=== PATIENT | female | born 1960 | race Caucasian/White ===

== ENCOUNTER 2018-06-19 11:29 | Inpatient (IN) | payer OTHER ==
[2018-06-19 11:36] VITALS: BMI 23.3
[2018-06-19] MEDS ORDERED: ACETAMINOPHEN 500 MG TABLET (FP) PO ONE (12:26)
--- NOTE | 2018-06-19 12:27 | PDOC ---
History of Present Illness - General Chief Complaint: Palpitations Stated Complaint: PALPITATIONS Time Seen by Provider: 06/19/18 11:53 History Source: Patient Exam Limitations: No Limitations - History of Present Illness Initial Comments: 06/19/18 12:39 57-year-old female presents to ED with intermittent palpitations, dizziness and chest tightness for the past week. Patient states was at work sitting when she felt dizzy and next thing she know she woke up on the floor with bystanders and coworkers surrounding her. Patient states EMS was activated but refused medical treatment after being evaluated by EMS. Patient denies nausea, vomiting, abdominal pain, back pain, or difficulty breathing. Patient states no chest pain presently but continues with intermittent palpitations and dizziness. Patient was sent by Dr. Zhong office for admission cardiac workup and cardiology consult. Patient with history of diabetes, dyslipidemia and hypertension. Presenting Symptoms: Dizziness, Syncope Timing/Duration: reports: intermittent Severity/Quality: reports: mild, tightness Location: reports: substernal Chest Pain Radiation: reports: no radiation Activities at Onset: reports: none Prior Chest Pain/Cardiac Workup: reports: No prior chest pain Nitro Today/Relief: Yes: no nitro taken today Aspirin Received prior to arrival (Core Measure): Yes: no aspirin today Associated Symptoms: Yes: Chest Pain/pressure, Dizziness, Syncope Past History - Travel Traveled outside of the country in the last 30 days: No - Past Medical History Allergies/Adverse Reactions: Allergies Allergy/AdvReac Type Severity Reaction Status Date / Time No Known Allergies Allergy Verified 06/19/18 11:56 COPD: No DVT: No Dementia: No Diabetes: Yes Hypercholesterolemia: Yes - Immunization History Immunization Up to Date: Yes - Suicide/Smoking/Psychosocial Hx Smoking History: Never smoked Have you smoked in the past 12 months: No Information on smoking cessation initiated: No Hx Alcohol Use: No Drug/Substance Use Hx: No Substance Use Type: None Patient Lives Alone: No Review of Systems - Review of Systems Able to Perform ROS?: No Constitutional: No: Symptoms Reported HEENTM: No: Symptoms Reported Respiratory: No: Symptoms reported Cardiac (ROS): Yes: Chest Pain, Lightheadedness, Syncope ABD/GI: No: Symptoms Reported : No: Symptoms Reported Musculoskeletal: No: Symptoms Reported Integumentary: No: Symptoms Reported Neurological: Yes: Dizziness Psychiatric: Yes: Anxiety Endocrine: No: Symptoms Reported Hematologic/Lymphatic: No: Symptoms Reported *Physical Exam - Vital Signs Last Vital Signs Temp Pulse Resp BP Pulse Ox 98.9 F 79 18 143/69 97 06/19/18 11:32 06/19/18 11:32 06/19/18 11:32 06/19/18 11:32 06/19/18 11:32 - Physical Exam General Appearance: Yes: Nourished, Appropriately Dressed. No: Apparent Distress HEENT: positive: EOMI, ANURADHA. negative: Pale Conjunctivae Neck: positive: Supple Respiratory/Chest: positive: Lungs Clear, Normal Breath Sounds. negative: Respiratory Distress, Accessory Muscle Use Cardiovascular: positive: Regular Rhythm, Regular Rate. negative: Murmur Gastrointestinal/Abdominal: positive: Soft. negative: Tenderness Extremity: positive: Normal Capillary Refill. negative: Pedal Edema Integumentary: positive: Normal Color, Warm, Moist Neurologic: positive: Motor Strength 5/5 (ambulatory) Heart Score/ECG Review - ECG Intrepretation Rhythm: Regular Rhythm (rate 73. Sinus rhythm with PAC. Right bundle-branch block. No ST elevation/depression) ED Treatment Course - LABORATORY CBC & Chemistry Diagram: 06/19/18 12:20 06/19/18 12:20 - RADIOLOGY Radiology Studies Ordered: Category Date Time Status HEAD CT WITHOUT CONTRAST [CT] Stat CT Scan 06/19/18 12:08 Ordered CHEST X-RAY PORTABLE* [RAD] Stat Radiology 06/19/18 11:54 Ordered CAROTID COLOR FLOW DOPP US [US] Stat Ultrasound 06/19/18 12:07 Ordered Medical Decision Making - Medical Decision Making 06/19/18 13:00 Patient sent here from Dr. vance's office for admission secondary to dizziness , syncope intermittent palpitations for the past week. Patient currently complaining of intermittent palpitations with mild dizziness without visual changes, chest pressure, or weakness. Patient ordered for cardiac workup including carotid duplex secondary to dyslipidemia and head CT secondary to syncope. Consultation to Dr. Stoll cardiology placed 06/19/18 13:19 Cardiology consult appreciated. Patient admitted to telemetry. 06/19/18 13:20 Laboratory Tests 06/19/18 06/19/18 06/19/18 12:20 12:20 12:20 WBC 5.8 Hgb 11.3 Hct 33.9 RDW 17.9 H Neutrophils % 45.0 Lymphocytes % 41.8 H Sodium 140 Potassium 4.1 Chloride 104 Carbon Dioxide 25 Anion Gap 11 BUN 11 Creatinine 0.7 Random Glucose 137 H Calcium 8.6 Magnesium 2.0 Creatine Kinase 156 Creatine Kinase Index Pending CK-MB (CK-2) Pending Troponin I 0.04 *DC/Admit/Observation/Transfer Diagnosis at time of Disposition: Palpitations, Syncope, Dizziness - Discharge Dispostion Decision to Admit order: Yes Decision to Admit order Date/Time: Decision to Admit Order Category Date Time Status Decision to Admit to Hospital Routine Admission 06/19/18 12:30 Ordered - Referrals - Patient Instructions - Post Discharge Activity
[2018-06-19 12:31] LABS: BASO % 0.5 % (0-2.0); EOS % 4.4 % (0-4.5); HEMATOCRIT 33.9 % (32.4-45.2); HEMOGLOBIN 11.3 GM/dL (10.7-15.3); LYMPH % 41.8 % (8-40); MCH 29.4 pg (25.7-33.7); MCHC 33.3 g/dl (32.0-36.0); MEAN CELL VOLUME 88.3 fl (80-96); MEAN PLT VOLUME 7.9 fl (7.5-11.1); MONO % 8.3 % (3.8-10.2); PLATELET COUNT 323 K/MM3 (134-434); RBC 3.83 M/mm3 (3.60-5.2); RDW 17.9 % (11.6-15.6); WHITE BLOOD COUNT 5.8 K/mm3 (4.0-10.0)
[2018-06-19] MEDS ORDERED: ACETAMINOPHEN 325 MG TABLET (FP) ONE (12:38)
[2018-06-19 12:46] LABS: ALBUMIN 3.7 g/dl (3.4-5.0); ANION GAP 11 MMOL/L (8-16); BLOOD UREA NITROGEN 11 mg/dL (7-18); CALCIUM 8.6 mg/dL (8.5-10.1); CHLORIDE 104 mmol/L (98-107); CO2 25 mmol/L (21-32); GLUCOSE,RANDOM 137 mg/dL (74-106); POTASSIUM 4.1 mmol/L (3.5-5.1); SODIUM 140 mmol/L (136-145)
[2018-06-19 12:46] LABS: URINE APPEARANCE CLEAR; URINE COLOR AMBER; URINE GLUCOSE (UA) NEGATIVE (NEGATIVE); URINE KETONE 1+ (NEGATIVE); URINE LEUK ESTERASE NEGATIVE (NEGATIVE); URINE NITRITE NEGATIVE (NEGATIVE)
[2018-06-19 12:51] LABS: BILIRUBIN,TOTAL 0.3 mg/dL (0.2-1); CREATININE 0.7 mg/dL (0.55-1.3); SGOT/AST 15 U/L (15-37); SGPT/ALT 23 U/L (13-61); TOT PROT 7.1 g/dl (6.4-8.2)
[2018-06-19 12:53] LABS: ALK PHOS 48 U/L (45-117)
[2018-06-19 12:55] LABS: INR 0.94 (0.83-1.09); PROTHROMBIN TIME (PATIENT) 10.6 SEC (9.7-13.0)
[2018-06-19 13:12] LABS: URINE PROTEIN 1+ (NEGATIVE)
[2018-06-19 13:15] LABS: EPI CELLS RARE /HPF (FEW); URINE MUCUS MANY
--- NOTE | 2018-06-19 16:09 | ECHO ---
Name: RICHARD MELGAR Exam:Adult Echocardiogram Study Date: 06/19/2018 02:10 PM Age: 57 yrs Reason For Study: SYNCOPE Height: 62 in Weight: 128 lb BSA: 1.6 m2 MMode/2D Measurements & Calculations IVSd: 0.75 cm Ao root diam: 2.4 cm LVIDd: 4.3 cm LA dimension: 2.8 cm LVIDs: 3.3 cm LVPWd: 0.75 cm EDV(Teich): 84.4 ml TAPSE: 2.3 cm ESV(Teich): 44.6 ml RV S Saad: 9.1 cm/sec Doppler Measurements & Calculations MV E max saad: 72.5 cm/sec Ao V2 max: 113.4 cm/sec MV A max saad: 65.9 cm/sec Ao max P.1 mmHg MV E/A: 1.1 MV dec time: 0.18 sec LV V1 max P.4 mmHg MR max saad: 433.9 cm/sec LV V1 max: 59.6 cm/sec MR max P.9 mmHg TR max saad: 154.2 cm/sec Med Peak E' Saad: 6.8 cm/sec TR max P.7 mmHg Med E/e': 10.6 Lat Peak E' Saad: 5.8 cm/sec Lat E/e': 12.4 Procedure A complete two-dimensional transthoracic echocardiogram was performed (2D, M-mode, Doppler and color flow Doppler). The study was technically excellent with all images being of optimal quality. Left Ventricle The left ventricular size, thickness and function are normal. Left Ventricular Filling pattern is nor mal for age. The left ventricular wall motion is normal. Right Ventricle The right ventricle is normal in size and function. There is normal right ventricular wall thickness. Atria Normal left and right atrial size and function. Mitral Valve The mitral valve is normal in structure and function. There is mild mitral regurgitation. Tricuspid Valve The tricuspid valve is normal in structure and function. There is trace tricuspid regurgitation. Aortic Valve The aortic valve is normal in structure and function. No aortic regurgitation is present. Pulmonic Valve The pulmonic valve is normal in structure and function. Trace pulmonic valvular regurgitation. Great Vessels The aortic root is normal size. Pericardium/Pleura There is no pericardial effusion. Interpretation Summary This was essentially a normal study. Sheng Macdonald 06/19/2018 04:08 PM
--- NOTE | 2018-06-19 16:09 | CON.CARD ---
Consult Consult Specialty:: Cardiology Reason for Consultation:: Syncope - History of Present Illness History of Present Illness: 57-year-old female presents to ED with intermittent palpitations and syncope a week ago. While standing she felt nausiated, dizzy and then passed out. She continues to have palpitations usually with exertion and has noted significant reduction in ambulatory capacity due to new onset of dyspnea. On ECG she has a new RBBB. Previous history is notable for Type one DM as a child and hypothyroidism, anxiety. - History Source History Provided By: Patient, Medical Record Limitations to Obtaining History: No Limitations - Past Medical History Cardio/Vascular: Yes: Hyperlipdemia - Alcohol/Substance Use Hx Alcohol Use: No - Smoking History Smoking history: Never smoked Have you smoked in the past 12 months: No Home Medications - Allergies Allergies/Adverse Reactions: Allergies Allergy/AdvReac Type Severity Reaction Status Date / Time No Known Allergies Allergy Verified 06/19/18 11:56 - Home Medications Home Medications: Ambulatory Orders Amitriptyline HCl 25 mg PO HS 06/19/18 Aripiprazole [Abilify] 5 mg PO DAILY 06/19/18 Atorvastatin Ca [Lipitor] 10 mg PO HS 06/19/18 Duloxetine HCl [Cymbalta] 60 mg PO DAILY 06/19/18 Insulin Glargine,Hum.rec.anlog [Toujeo Solostar] 30 unit SQ DAILY 06/19/18 LORazepam [Ativan] 1 mg PO QID 06/19/18 Levothyroxine [Synthroid -] 150 mcg PO DAILY 06/19/18 Oxycodone HCl/Acetaminophen [Percocet 5-325 mg Tablet] 1 tab PO Q4H 06/19/18 traZODone HCL [Trazodone HCl] 100 mg PO HS 06/19/18 Review of Systems - Review of Systems Constitutional: reports: No Symptoms Eyes: reports: No Symptoms HENT: reports: No Symptoms Neck: reports: No Symptoms Cardiovascular: reports: Palpitations, Shortness of Breath Respiratory: reports: Exercise Intolerance, SOB on Exertion. denies: Cough Gastrointestinal: reports: No Symptoms Vital Signs: Vital Signs Temperature 97.8 F 06/19/18 14:59 Pulse Rate 66 06/19/18 14:59 Respiratory Rate 18 06/19/18 14:59 Blood Pressure 147/79 06/19/18 14:59 O2 Sat by Pulse Oximetry (%) 98 06/19/18 14:59 Constitutional: Yes: Well Nourished, No Distress, Calm Eyes: Yes: Conjunctiva Clear, EOM Intact HENT: Yes: Atraumatic, Normocephalic Neck: Yes: Supple, Trachea Midline Respiratory: Yes: Regular, CTA Bilaterally Gastrointestinal: Yes: Normal Bowel Sounds Cardiovascular: Yes: Regular Rate and Rhythm. No: Gallop, Rub JVD: No Carotid Bruit: No PMI: Non-Displaced Heart Sounds: Yes: S1, S2 Murmur: No: Systolic Murmur, Diastolic Murmur - Other Data Labs, Other Data: CBC, BMP 06/19/18 12:20 06/19/18 12:20 INR, PTT INR 0.94 (0.83-1.09) 06/19/18 12:20 Troponin, BNP 06/19/18 12:20 Troponin I 0.04 Troponin, BNP 06/19/18 12:20 Troponin I 0.04 NSR RAD and RBBB with anteroseptal ischemia Problem List - Problems (1) Palpitations Code(s): R00.2 - PALPITATIONS (2) Syncope Code(s): R55 - SYNCOPE AND COLLAPSE Assessment/Plan 57 F with DM type 1 with recent ROSALES and admitted with recurrent palpitations. She had syncope last week associated with nausea and lightheadeness. Her ECG is notable for new RBBB and possible ischemia. Echocardiogram today showing noraml biventricular function. Low wells score but Would check D-Dimer given new RBBB Will schedule to lexiscan stress Likely vagal syncope
--- NOTE | 2018-06-19 16:16 | EKG ---
Test Reason : Blood Pressure : / mmHG Vent. Rate : 073 BPM Atrial Rate : 073 BPM P-R Int : 150 ms QRS Dur : 122 ms QT Int : 416 ms P-R-T Axes : 029 105 032 degrees QTc Int : 458 ms SINUS RHYTHM WITH PREMATURE ATRIAL COMPLEXES RIGHT BUNDLE BRANCH BLOCK ABNORMAL ECG NO PREVIOUS ECGS AVAILABLE Confirmed by Sheng Macdonald ([id number]) on 06/19/2018 4:16:21 PM Referred By: Confirmed By:Sheng Macdonald
[2018-06-19] MEDS: INSULIN SLIDING SCALE (NOVOLOG) 1 VIAL SQ SCH ×2 (16:35→21:48)
[2018-06-19] MEDS ORDERED: oxyCODONE HCL 5 MG TABLET PO ONE (16:45)
[2018-06-19] MEDS ORDERED: ACETAMINOPHEN 325 MG TABLET (FP) PO ONE (16:45)
[2018-06-19] MEDS ORDERED: FLU VACCINE QUAD 60 MCG/0.5 ML (MDV 18-19) IM ONE (18:00)
[2018-06-19] MEDS: LORazepam 0.5 MG TABLET PO PRN ×2 (18:41→22:00)
[2018-06-19 21:30] LABS: BASO % 0.6 % (0-2.0); EOS % 5.9 % (0-4.5); HEMATOCRIT 32.1 % (32.4-45.2); HEMOGLOBIN 10.7 GM/dL (10.7-15.3); MCH 29.6 pg (25.7-33.7); MCHC 33.4 g/dl (32.0-36.0); MEAN CELL VOLUME 88.6 fl (80-96); MEAN PLT VOLUME 8.5 fl (7.5-11.1); MONO % 9.4 % (3.8-10.2); NEUT % 40.1 % (42.8-82.8); PLATELET COUNT 305 K/MM3 (134-434); RBC 3.62 M/mm3 (3.60-5.2); RDW 17.8 % (11.6-15.6); WHITE BLOOD COUNT 5.7 K/mm3 (4.0-10.0)
[2018-06-19 21:42] LABS: INR 0.95 (0.83-1.09); PROTHROMBIN TIME (PATIENT) 10.7 SEC (9.7-13.0)
[2018-06-19] MEDS ORDERED: ATORVASTATIN CA 10 MG TABLET (FP) PO SCH (22:00)
[2018-06-19] MEDS ORDERED: traZODone HCL 50 MG TABLET (FP) PO SCH (22:00)
[2018-06-19] MEDS ORDERED: AMITRIPTYLINE HCL 25 MG TABLET (FP) PO SCH (22:00)
[2018-06-20] MEDS: INSULIN SLIDING SCALE (NOVOLOG) 1 VIAL SQ SCH ×3 (06:20→16:54)
[2018-06-20] MEDS ORDERED: INSULIN (LEVEMIR) 100 UNITS/ML UNITS SQ SCH (07:00)
[2018-06-20] MEDS ORDERED: LEVOTHYROXINE NA 150 MCG TABLET PO SCH (07:00)
--- NOTE | 2018-06-20 08:26 | HP ---
Admitting History and Physical - Admission History of Present Illness: 57-year-old female presents to ED with intermittent palpitations, dizziness and chest tightness for the past week. Patient states was at work sitting when she felt dizzy and next thing she know she woke up on the floor with bystanders and coworkers surrounding her. Patient states EMS was activated but refused medical treatment after being evaluated by EMS. Patient denies nausea, vomiting, abdominal pain, back pain, or difficulty breathing. Patient states no chest pain presently but continues with intermittent palpitations and dizziness. Patient was sent by Dr. Zhong office for admission cardiac workup and cardiology consult. This am pt states fells better - Past Medical History Cardiovascular: Yes: Hyperlipdemia Psych: Yes: Depression Endocrine: Yes: Diabetes Mellitus - Smoking History Smoking history: Never smoked Have you smoked in the past 12 months: No - Alcohol/Substance Use Hx Alcohol Use: No Home Medications - Allergies Allergies/Adverse Reactions: Allergies Allergy/AdvReac Type Severity Reaction Status Date / Time No Known Allergies Allergy Verified 06/19/18 11:56 - Home Medications Home Medications: Ambulatory Orders Amitriptyline HCl 25 mg PO HS 06/19/18 Aripiprazole [Abilify] 5 mg PO DAILY 06/19/18 Atorvastatin Ca [Lipitor] 10 mg PO HS 06/19/18 Duloxetine HCl [Cymbalta] 60 mg PO DAILY 06/19/18 Insulin Glargine,Hum.rec.anlog [Touconrado Solostar] 30 unit SQ DAILY 06/19/18 LORazepam [Ativan] 1 mg PO QID 06/19/18 Levothyroxine [Synthroid -] 150 mcg PO DAILY 06/19/18 Oxycodone HCl/Acetaminophen [Percocet 5-325 mg Tablet] 1 tab PO Q4H 06/19/18 traZODone HCL [Trazodone HCl] 100 mg PO HS 06/19/18 Review of Systems - Review of Systems Cardiovascular: reports: Chest Pain, Palpitations Respiratory: reports: SOB on Exertion Gastrointestinal: reports: No Symptoms Genitourinary: reports: No Symptoms Neurological: reports: Syncope, Weakness Physical Examination Vital Signs: Vital Signs Temperature 98.1 F 06/20/18 06:00 Pulse Rate 68 06/20/18 06:00 Respiratory Rate 18 06/20/18 06:00 Blood Pressure 120/63 06/20/18 06:00 O2 Sat by Pulse Oximetry (%) 98 06/19/18 21:00 Cardiovascular: Yes: Regular Rate and Rhythm, Murmur Respiratory: Yes: Regular, CTA Bilaterally Gastrointestinal: Yes: Normal Bowel Sounds, Soft Neurological: Yes: Alert, Oriented. No: Confusion, Pre-Existing Deficit Labs: CBC, BMP 06/19/18 21:05 06/19/18 12:20 Imaging - Results Cat Scan: Report Reviewed (head--nad) Problem List - Problems (1) Chest pain Assessment/Plan: Cardio consult notes stress test Code(s): R07.9 - CHEST PAIN, UNSPECIFIED (2) RBBB Assessment/Plan: r/o pe cta Code(s): I45.10 - UNSPECIFIED RIGHT BUNDLE-BRANCH BLOCK (3) Diabetes Assessment/Plan: bgm--ss --endo Code(s): E11.9 - TYPE 2 DIABETES MELLITUS WITHOUT COMPLICATIONS (4) Palpitations Assessment/Plan: -tele -await stress test Code(s): R00.2 - PALPITATIONS (5) Syncope Assessment/Plan: -as above -ct head nad -carotid Code(s): R55 - SYNCOPE AND COLLAPSE
[2018-06-20 08:45] VITALS: BP 116/58; PULSE 71; TEMP 98.5
[2018-06-20] MEDS ORDERED: ARIPiprazole 5 MG TABLET (FP) PO SCH (10:00)
[2018-06-20] MEDS ORDERED: DULoxetine HCL 30 MG CAPSULE.DR (FP) PO SCH (10:00)
[2018-06-20] MEDS ORDERED: REGADENOSON 0.4 MG/5 ML PRE-FILLED SYRINGE IVPUSH ONE (10:15)
[2018-06-20] MEDS ORDERED: DIPYRIDAMOLE STRESS TEST IVPB ONE (12:00)
[2018-06-20] MEDS ORDERED: DEXTROSE 5% IVPB ONE (12:00)
[2018-06-20] MEDS ORDERED: WATER IVPB ONE (12:00)
[2018-06-20] MEDS: LORazepam 0.5 MG TABLET PO PRN (14:36)
[2018-06-20] MEDS ORDERED: AMINOPHYLLINE 250 MG/10 ML VIAL IVPUSH ONE (15:00)
[2018-06-20] MEDS ORDERED: AMINOPHYLLINE 250 MG/10 ML VIAL ONE (15:28)
[2018-06-20] MEDS ORDERED: oxyCODONE HCL 5 MG TABLET PO PRN (15:42)
--- NOTE | 2018-06-20 15:45 | PN ---
Progress Note, Physician - Current Medication List Current Medications: Active Medications Amitriptyline HCl (Elavil -) 25 mg PO [facility] Last Admin: 06/19/18 21:47 Dose: 25 mg Aripiprazole (Abilify) 5 mg PO DAILY [facility] Last Admin: 06/20/18 14:37 Dose: 5 mg Atorvastatin Calcium (Lipitor -) 10 mg PO [facility] Last Admin: 06/19/18 21:47 Dose: 10 mg Duloxetine HCl (Cymbalta -) 60 mg PO DAILY [facility] Last Admin: 06/20/18 14:36 Dose: 60 mg Insulin Aspart (Novolog Vial Sliding Scale -) 1 vial SQ [facility]; Protocol Last Admin: 06/20/18 11:33 Dose: Not Given Insulin Detemir (Levemir Vial) 20 units SQ DAILY@0700 [facility] Last Admin: 06/20/18 06:20 Dose: Not Given Levothyroxine Sodium (Synthroid -) 150 mcg PO DAILY@0700 [facility] Last Admin: 06/20/18 06:20 Dose: 150 mcg Lorazepam (Ativan -) 1 mg PO Q8H PRN PRN Reason: ANXIETY Last Admin: 06/20/18 14:36 Dose: 1 mg Oxycodone HCl (Roxicodone -) 5 mg PO Q6H PRN PRN Reason: PAIN LEVEL 6-10 Trazodone HCl (Desyrel -) 100 mg PO [facility] Last Admin: 06/19/18 21:47 Dose: 100 mg - Objective Vital Signs: Vital Signs Temperature 98.5 F 06/20/18 08:44 Pulse Rate 71 06/20/18 08:44 Respiratory Rate 18 06/20/18 08:44 Blood Pressure 116/58 06/20/18 08:44 O2 Sat by Pulse Oximetry (%) 98 06/20/18 08:44 Labs: CBC, BMP 06/19/18 21:05 06/19/18 12:20 INR, PTT INR 0.95 (0.83-1.09) 06/19/18 21:05
--- NOTE | 2018-06-20 15:50 | PN ---
Progress Note, Physician History of Present Illness: pt seen and examined today in nad. upset stating she wants to go home. denies any further palpitations no lightheadedness no chest pain or sob. - Current Medication List Current Medications: Active Medications Amitriptyline HCl (Elavil -) 25 mg PO [facility] Last Admin: 06/19/18 21:47 Dose: 25 mg Aripiprazole (Abilify) 5 mg PO DAILY [facility] Last Admin: 06/20/18 14:37 Dose: 5 mg Atorvastatin Calcium (Lipitor -) 10 mg PO [facility] Last Admin: 06/19/18 21:47 Dose: 10 mg Duloxetine HCl (Cymbalta -) 60 mg PO DAILY [facility] Last Admin: 06/20/18 14:36 Dose: 60 mg Insulin Aspart (Novolog Vial Sliding Scale -) 1 vial SQ [facility]; Protocol Last Admin: 06/20/18 11:33 Dose: Not Given Insulin Detemir (Levemir Vial) 20 units SQ DAILY@0700 [facility] Last Admin: 06/20/18 06:20 Dose: Not Given Levothyroxine Sodium (Synthroid -) 150 mcg PO DAILY@0700 [facility] Last Admin: 06/20/18 06:20 Dose: 150 mcg Lorazepam (Ativan -) 1 mg PO Q8H PRN PRN Reason: ANXIETY Last Admin: 06/20/18 14:36 Dose: 1 mg Oxycodone HCl (Roxicodone -) 5 mg PO Q6H PRN PRN Reason: PAIN LEVEL 6-10 Trazodone HCl (Desyrel -) 100 mg PO [facility] Last Admin: 06/19/18 21:47 Dose: 100 mg - Objective Vital Signs: Vital Signs Temperature 98.5 F 06/20/18 08:44 Pulse Rate 71 06/20/18 08:44 Respiratory Rate 18 06/20/18 08:44 Blood Pressure 116/58 06/20/18 08:44 O2 Sat by Pulse Oximetry (%) 98 06/20/18 08:44 Constitutional: Yes: No Distress, Calm Eyes: Yes: Conjunctiva Clear, EOM Intact, PERRL HENT: Yes: Atraumatic, Normocephalic Neck: Yes: Supple, Trachea Midline Cardiovascular: Yes: Regular Rate and Rhythm, S1, S2. No: Bradycardia, Tachycardia, Pulse Irregular, Bruit, JVD, Gallop, Murmur, Rub, S3, S4, Varicosities Respiratory: Yes: Regular, CTA Bilaterally. No: Rales, Rhonchi, SOB, Wheezes Gastrointestinal: Yes: Normal Bowel Sounds, Soft. No: Distention, Tenderness Musculoskeletal: Yes: WNL Extremities: Yes: WNL Edema: No Peripheral Pulses WNL: Yes Peripheral Pulses: Left Doralis Pedis: 2+, Right Dorsalis Pedis: 2+ Integumentary: Yes: WNL Psychiatric: Yes: Alert, Oriented Labs: CBC, BMP 06/19/18 21:05 06/19/18 12:20 INR, PTT INR 0.95 (0.83-1.09) 06/19/18 21:05 - ....Imaging Chest X-ray: Report Reviewed, Image Reviewed EKG: Report Reviewed, Image Reviewed Other: Report Reviewed, Image Reviewed (tele-nsr, frequent apcs, atrial bigeminy ,) Assessment/Plan 57 F with DM type 1 with recent ROSALES and admitted with recurrent palpitations. She had syncope last week associated with nausea and lightheadeness. Her ECG is notable for new RBBB and possible ischemia. Echocardiogram 06/19/18 showing normal biventricular function. CTA chest showed no PE Teresa nuclear stress test today showed small mild anteroapical ischema LVEF 78% Cardiac enzymes wnl, no further symptoms Syncope likely vasovagal Given ischemia is small area mild intensity anteroapical with normal wall motion and normal LVEF on echo and stress pt would be acceptable for discharge with a plan for close outpatient fup and consideration for further evaluation of coronaries Would start ASA 81mg daily and cont statin Insufficient HR and BP room to start bblocker at this time. [facility] close outpatient fup within 1-2 weeks
--- NOTE | 2018-06-20 16:10 | DS ---
Physical Examination Vital Signs: Vital Signs Temperature 98.5 F 06/20/18 08:44 Pulse Rate 71 06/20/18 08:44 Respiratory Rate 18 06/20/18 08:44 Blood Pressure 116/58 06/20/18 08:44 O2 Sat by Pulse Oximetry (%) 98 06/20/18 08:44 Findings/Remarks: 57-year-old female presents to ED with intermittent palpitations, dizziness and chest tightness for the past week. Patient states was at work sitting when she felt dizzy and next thing she know she woke up on the floor with bystanders and coworkers surrounding her. Patient states EMS was activated but refused medical treatment after being evaluated by EMS. Patient denies nausea, vomiting, abdominal pain, back pain, or difficulty breathing. Patient states no chest pain presently but continues with intermittent palpitations and dizziness. Patient was sent by Dr. Zhong office for admission cardiac workup and cardiology consult. Constitutional: Yes: Well Nourished, No Distress, Calm Cardiovascular: Yes: Regular Rate and Rhythm Respiratory: Yes: Regular Gastrointestinal: Yes: Normal Bowel Sounds, Soft Labs: CBC, BMP 06/19/18 21:05 06/19/18 12:20 Discharge Summary Reason For Visit: DIZZINESS Current Active Problems Chest pain (Acute) Diabetes (Acute) Dizziness (Acute) Palpitations (Acute) RBBB (Acute) Syncope (Acute) Hospital Course: Laboratory Last Values WBC 5.7 K/mm3 (4.0-10.0) 06/19/18 21:05 RBC 3.62 M/mm3 (3.60-5.2) 06/19/18 21:05 Hgb 10.7 GM/dL (10.7-15.3) 06/19/18 21:05 Hct 32.1 % (32.4-45.2) L 06/19/18 21:05 MCV 88.6 fl (80-96) 06/19/18 21:05 MCH 29.6 pg (25.7-33.7) 06/19/18 21:05 MCHC 33.4 g/dl (32.0-36.0) 06/19/18 21:05 RDW 17.8 % (11.6-15.6) H 06/19/18 21:05 Plt Count 305 K/MM3 (134-434) 06/19/18 21:05 MPV 8.5 fl (7.5-11.1) 06/19/18 21:05 Absolute Neuts (auto) 2.3 K/mm3 (1.5-8.0) 06/19/18 21:05 Neutrophils % 40.1 % (42.8-82.8) L 06/19/18 21:05 Lymphocytes % 44.0 % (8-40) H 06/19/18 21:05 Monocytes % 9.4 % (3.8-10.2) 06/19/18 21:05 Eosinophils % 5.9 % (0-4.5) H 06/19/18 21:05 Basophils % 0.6 % (0-2.0) 06/19/18 21:05 Nucleated RBC % 0 % (0-0) 06/19/18 21:05 PT with INR 10.70 SEC (9.7-13.0) 06/19/18 21:05 INR 0.95 (0.83-1.09) 06/19/18 21:05 Sodium 140 mmol/L (136-145) 06/19/18 12:20 Potassium 4.1 mmol/L (3.5-5.1) 06/19/18 12:20 Chloride 104 mmol/L (98-107) 06/19/18 12:20 Carbon Dioxide 25 mmol/L (21-32) 06/19/18 12:20 Anion Gap 11 MMOL/L (8-16) 06/19/18 12:20 BUN 11 mg/dL (7-18) 06/19/18 12:20 Creatinine 0.7 mg/dL (0.55-1.3) 06/19/18 12:20 Creat Clearance w eGFR > 60 (>60) 06/19/18 12:20 POC Glucometer 93 UNITS (80-120) 06/20/18 11:27 Random Glucose 137 mg/dL (74-106) H 06/19/18 12:20 Hemoglobin A1c % 9.0 % (4.2-6.3) H 06/19/18 21:05 Calcium 8.6 mg/dL (8.5-10.1) 06/19/18 12:20 Magnesium 2.0 mg/dL (1.8-2.4) 06/19/18 12:20 Total Bilirubin 0.3 mg/dL (0.2-1) 06/19/18 12:20 AST 15 U/L (15-37) 06/19/18 12:20 ALT 23 U/L (13-61) 06/19/18 12:20 Alkaline Phosphatase 48 U/L (45-117) 06/19/18 12:20 Creatine Kinase 156 IU/L (26-192) 06/19/18 12:20 Creatine Kinase Index 0.6 % (0.0-5.0) 06/19/18 12:20 CK-MB (CK-2) 1.07 ng/mL (0.5-3.6) 06/19/18 12:20 Troponin I 0.03 ng/ml (0.00-0.05) 06/20/18 12:20 Total Protein 7.1 g/dl (6.4-8.2) 06/19/18 12:20 Albumin 3.7 g/dl (3.4-5.0) 06/19/18 12:20 TSH 4.38 uIU/ml (0.358-3.74) H 06/20/18 06:15 Free T4 1.03 ng/dl (0.76-1.46) 06/20/18 06:15 Urine Color [place] 06/19/18 12:40 Urine Appearance Clear 06/19/18 12:40 Urine pH 5.0 (5.0-8.0) 06/19/18 12:40 Ur Specific [place] 1.032 (1.001-1.035) 06/19/18 12:40 Urine Protein 1+ (NEGATIVE) H 06/19/18 12:40 Urine Glucose (UA) Negative (NEGATIVE) 06/19/18 12:40 Urine Ketones 1+ (NEGATIVE) H 06/19/18 12:40 Urine Blood Negative (NEGATIVE) 06/19/18 12:40 Urine Nitrite Negative (NEGATIVE) 06/19/18 12:40 Urine Bilirubin 4.0 (<2.0 mg/dL) 06/19/18 12:40 Urine Urobilinogen 2.0 mg/dL (0.2-1.0) H 06/19/18 12:40 Ur Leukocyte Esterase Negative (NEGATIVE) 06/19/18 12:40 Urine WBC (Auto) 1 /hpf (3-5) 06/19/18 12:40 Urine RBC (Auto) 3 /hpf (0-3) 06/19/18 12:40 Ur Epithelial Cells Rare /HPF (FEW) 06/19/18 12:40 Urine Mucus Many 06/19/18 12:40 Vital Signs Period Temp Pulse Resp BP Sys/Hardin Pulse Ox Last 24 Hr 97.5 F-98.5 F 61-71 18-18 116-130/58-67 98-98 Condition: Stable - Instructions Diet, Activity, Other Instructions: Follow up with Cardiology Dr Esau Thompson within 1-2 weeks Referrals: Esau Thompson MD [Staff Physician] - Disposition: HOME - Home Medications Comprehensive Discharge Medication List: Ambulatory Orders Amitriptyline HCl 25 mg PO HS 06/19/18 Aripiprazole [Abilify] 5 mg PO DAILY 06/19/18 Atorvastatin Ca [Lipitor] 10 mg PO HS 06/19/18 Duloxetine HCl [Cymbalta] 60 mg PO DAILY 06/19/18 Insulin Glargine,Hum.rec.anlog [Tomeliton Solivonne] 30 unit SQ DAILY 06/19/18 LORazepam [Ativan] 1 mg PO QID 06/19/18 Levothyroxine [Synthroid -] 150 mcg PO DAILY 06/19/18 Oxycodone HCl/Acetaminophen [Percocet 5-325 mg Tablet] 1 tab PO Q4H 06/19/18 traZODone HCL [Trazodone HCl] 100 mg PO HS 06/19/18
[2018-06-20 17:12] LABS: COCAINE, UR NEGATIVE ng/ml (CUTOFF=300); OPIATES, URI NEGATIVE ng/ml (CUTOFF=300); URINE AMPHETAMINES NEGATIVE ng/ml (CUTOFF=500); URINE BENZODIAZEPINES NEGATIVE ng/ml (CUTOFF=200)
[2018-06-20 17:17] LABS: METHADONE, UR NEGATIVE ng/ml (CUTOFF=300); PHENCYCLIDINE,URINE NEGATIVE ng/ml (CUTOFF=25)
[2018-06-20 17:20] LABS: URINE BARBITURATES POSITIVE ng/ml (CUTOFF=200)
== END 2018-06-20 17:18 | disposition home or self-care (01) | DRG 201 ==
LOC: JER 11:29 → JERBED 12:30 → OBSVTOIN 15:14 → J4W 15:33
PROVIDERS: ADMIT Family Medicine; ATTEND Family Medicine
DX: R00.2 Palpitations (principal); I45.10 Unspecified right bundle-branch block; R55 Syncope and collapse; R07.9 Chest pain, unspecified; R42 Dizziness and giddiness
CPT/HCPCS: 36415; 70450-TC; 71045-TC-FY; 71275-TC; 78452-TC; 80053; 80061; 80307; 81003; 81015; 82550; 82553; 82962; 83036; 83721; 83735; 84439; 84443; 84484; 85025; 85610; 90688; 93005; 93010; 93017; 93306-TC; 93880-TC; 99285-25; A9502; G0008; G0378; J1245